=== PATIENT | male | born 1955 | race African-American/Black ===

== ENCOUNTER 2018-03-23 06:29 | Emergency (ER) | payer MEDICARE, MEDICAID ==
[~2018-03-23] VITALS: Ht 177.8 cm; Wt 81.8 kg
[2018-03-23] MEDS ORDERED: AMLODIPINE 10MG TABLET PO ONE (07:15)
[2018-03-23] MEDS ORDERED: IBUPROFEN 800MG TABLET PO ONE (07:15)
[2018-03-23] MEDS ORDERED: HYDROCODONE/ACETAMINOPHEN 5/325MG TABLET PO ONE (07:15)
[2018-03-23 09:48] VITALS: BP 138/83
== END 2018-03-23 11:06 | disposition home or self-care (01) ==
LOC: ER 07:21
DX: S16.1XXA Strain of muscle, fascia and tendon at neck level, initial encounter (principal); F17.200 Nicotine dependence, unspecified, uncomplicated; I10 Essential (primary) hypertension; V49.59XA Passenger injured in collision with other motor vehicles in traffic accident, initial encounter; Y93.89 Activity, other specified; Y92.89 Other specified places as the place of occurrence of the external cause; Y99.8 Other external cause status
CPT/HCPCS: 71045; 99284